=== PATIENT | female | born 1965 | race Caucasian/White ===

== ENCOUNTER → 2017-07-25 10:50 | Outpatient (CLI) | payer BC ==
[2010-12-03 03:39] VITALS: BMI 36.6
== END | disposition home or self-care (01) ==
LOC: D.MRI 10:50
DX: M54.2 Cervicalgia (principal)

== ENCOUNTER → 2020-02-20 10:24 | Outpatient (CLI) | payer MEDICAID ==
[2010-12-03 03:39] VITALS: BMI 36.6
== END | disposition home or self-care (01) ==
LOC: D.RAD 10:24
PROVIDERS: ATTEND Internal Medicine Gastroenterology
DX: R13.10 Dysphagia, unspecified (principal)